=== PATIENT | born 1995 | race Caucasian/White ===

== ENCOUNTER → 2020-08-08 13:44 | Outpatient (CLI) | payer OTHER, SELFPAY ==
[2020-08-14 17:42] LABS: Alpha-1-Antitrypsin 143 mg/dL (.)
== END ==
PROVIDERS: Visit Provider Internal Medicine Pulmonary Disease
DX: J44.9 Chronic obstructive pulmonary disease, unspecified (principal)
CPT/HCPCS: 82103; 82104

== ENCOUNTER → 2020-08-28 08:08 | Outpatient (CLI) | payer OTHER, SELFPAY ==
--- NOTE | 2020-08-28 09:00 | PC.NURSE ---
Complete PFT with 6 Minute Walk Test completed without complications. Albuterol 0.083% given via [facility]N per protocol, Pt tolerated tx well.
== END ==
PROVIDERS: PCP Nurse Practitioner; Visit Provider Internal Medicine Pulmonary Disease
DX: R06.00 Dyspnea, unspecified (principal)
CPT/HCPCS: 94060; 94618; 94726; 94729